=== PATIENT | male | born 1955 | race African-American/Black ===

== ENCOUNTER 2017-09-08 19:33 | Emergency (ER) | payer OTHER ==
[~2017-09-08 19:33] MED LIST: BACT800T5 PO; ENAL20TA PO; HYDR10TA16 PO; LANSO30 PO/TUBE
[2017-09-08 19:37] VITALS: BP 156/87; PULSE 85; RESP 16; TEMP 98.1; O2SAT 100
[2017-09-08 19:41] VITALS: BP 146/86; TEMP 100.6; O2SAT 99
--- NOTE | 2017-09-08 19:58 | PD ---
HPI Chief Complaint: Eye Problems/Injury Time Seen by Provider: 19:52 Travel History International Travel<30 days: No Contact w/Intl Traveler<30days: No Traveled to known affect area: No History of Present Illness HPI Patient comes in complaining of foreign body sensation in his right eye. Patient states he was looking up at the ceiling when he felt some dust fall into his eye earlier today. He states he tried rinsing his eye out with water, but continued to have the foreign body sensation. Patient went to the pharmacist who recommended he continue to try and rinse his eye out some more however patient continues to have a foreign body sensation. Patient denies anything making this better or worse. Denies any change in vision. Patient reports tetanus shot is not up-to-date. PFSH Past Medical History Cardiovascular Problems: Yes High Cholesterol: Yes Diminished Hearing: No GERD: Yes Hypertension: Yes Immunizations Current: Yes Tetanus Vaccination: > 5 Years Influenza Vaccination: Yes Past Surgical History Body Medical Devices: NERVE STIMULATOR IMPLANTED RIGHT SIDE OF BACK Social History Alcohol Use: No Tobacco Use: No Substance Use: No Allergies-Medications (Allergen,Severity, Reaction): Coded Allergies: penicillin G (Unverified Allergy, Severe, HIVES, 09/08/17) Reported Meds & Prescriptions Reported Meds & Active Scripts Active Erythromycin Opth Oint 5 Mg/Gm Oint 1 Applic RIGHT EYE QID Bactrim DS (Sulfamethoxazole-Trimethoprim DS) 1 Tab Tab 1 Tab PO BID 10 Days Prevacid Solutab (Lansoprazole) 30 Mg Tab 30 Mg PO/TUBE DAILY Reported Enalapril Maleate 20 Mg Tab 20 Mg PO BID Lortab 10/500 (Acetaminophen/Hydrocodone Bitart) 10 Mg/500 Mg Tab 1 Tab PO Q4- 6HPRN FOR PAIN Review of Systems Except as stated in HPI: all other systems reviewed are Neg Physical Exam Narrative GENERAL: Well-developed, overly nourished, in no acute distress, and non-ill appearing. SKIN: Focused skin assessment warm and dry. HEAD: Atraumatic. Normocephalic. EYES: Pupils equal and round. EOMI. No scleral icterus. No injection or drainage. Patient presented with small foreign body versus small abrasion noted over the right eye. ENT: No nasal bleeding or discharge. Mucous membranes pink and moist. NECK: Trachea midline. Supple. No nuclear rigidity. RESPIRATORY: No accessory muscle use. No respiratory distress. MUSCULOSKELETAL: No obvious deformities. No clubbing. No cyanosis. No edema. Full range of motion. NEUROLOGICAL: Awake and alert. No obvious cranial nerve deficits. Motor grossly within normal limits. Normal speech. PSYCHIATRIC: Appropriate mood and affect; insight and judgment normal. Data Data Last Documented VS Vital Signs Date Time Temp Pulse Resp B/P (MAP) Pulse Ox O2 Delivery O2 Flow Rate FiO2 09/08/17 20:22 09/08/17 19:37 98.1 85 16 100 Orders Orders Proparacaine 0.5% Opth Soln (Alcaine 0.5 (09/08/17 20:00) Tetanus/Diphtheria Tox Adult (Tetanus/Di (09/08/17 20:00) Ed Discharge Order (09/08/17 20:19) [facility] Medical Decision Making Medical Screen Exam Complete: Yes Emergency Medical Condition: Yes Differential Diagnosis Foreign body, corneal abrasion, corneal ulcer, conjunctivitis, iritis, keratitis , other Narrative Course The patient presented with foreign body to eye. The patient underwent Saul Lamp exam with stain, as well as lid eversion. The foreign body was removed without incident and patient tolerated this well. Repeat exam revealed no retained foreign body. No history to suspect corneal ulceration as well. There is no evidence of iritis, glaucoma, preseptal cellulitis, periorbital or orbital cellulitis. Will place patient on ophthalmologic antibiotics. This was discussed with the patient. The patient was instructed to follow up with ophthalmology or return here if worsened, increased pain, decreased vision, swelling around the eye or as needed. Ophthalmology referral was given. The patient agreed with plan. Patient in no obvious distress upon re-evaluation. Patient was asked if they wanted to speak to my attending, which the patient did not wish to do at this time. Any questions/concerns in reference to patient diagnosis/condition discussed and clarified prior to patient's discharge. Reinforced sheer importance of close follow up with patient's primary physician or primary care clinic. Instructed patient to return to ED immediately, if symptoms return/ worsen. Patient showed understanding of above instructions. Further instructions and recommendations were detailed in discharge paperwork. Patient ambulated without difficulty out of ED at discharge. Procedures Procedure Narrative Verbal consent was obtained. Affected eye was anesthetized using proparacaine. Fluorescein staining and Wood lamp exam performed with no uptake seen. Appears be a tiny foreign body noted over right iris was easily removed using a Q-tip. Patient reports improvement his symptoms. Negative Christina sign. No hyphema, hyperemia, or rust ring. Eyelid was everted with no foreign body noted. No tenderness bilateral temporal arteries to palpation. Patient tolerated procedure well. Visual acuity was found to be 20/30 OS and OD without glasses Diagnosis Primary Impression: Foreign body of right eye Qualified Codes: T15.91XA - Foreign body on external eye, part unspecified, right eye, initial encounter Referrals: Sofiya Hopkins MD Patient Instructions: Eye Foreign Body (ED), General Instructions Additional Instructions: Follow-up with [facility] in 24-48 hours. Take all medication as prescribed. Return to the emergency department if symptoms get worse. Med/Other Pt SpecificInfo: Prescription(s) given Scripts Erythromycin Opth Oint (Erythromycin Opth Oint) 5 Mg/Gm Oint 1 APPLIC RIGHT EYE QID for Infection, #1 TUBE 0 Refills Prov: Vu Fleming MD 09/08/17 Disposition: 01 DISCHARGE HOME Condition: Stable Blu León Sep 08, 2017 19:58
[2017-09-08] MEDS ORDERED: PROPARACAINE HCL 0.5% OPHT SOLN 15 ML BTL RIGHT EYE ONE (20:00)
[2017-09-08] MEDS ORDERED: TETANUS/DIPHTHERIA TOXOID ADULT 0.5 ML VIAL IM ONE (20:00)
[2017-09-08] MEDS ORDERED: ERYTOIN10 RIGHT EYE (20:19)
== END 2017-09-08 20:27 | disposition home or self-care (01) ==
LOC: NEPK 19:33
DX: T15.91XA Foreign body on external eye, part unspecified, right eye, initial encounter (principal); E78.00 Pure hypercholesterolemia, unspecified; K21.9 Gastro-esophageal reflux disease without esophagitis; I10 Essential (primary) hypertension; Z88.0 Allergy status to penicillin; Z79.899 Other long term (current) drug therapy; Z23 Encounter for immunization
CPT/HCPCS: 90471; 90714